=== PATIENT | female | born 1955 | race Hispanic/Latino ===

== ENCOUNTER 2018-01-13 17:52 | Emergency (ER) | payer SELFPAY ==
[~2018-01-13 17:52] MED LIST: LISI-617 PO
[2018-01-13] MEDS ORDERED: ACETAMINOPHEN EXTRA STRENGTH 500 MG TABLET ONE (18:50)
== END 2018-01-13 19:03 | disposition home or self-care (01) ==
LOC: EDH 17:52
DX: S80.02XA Contusion of left knee, initial encounter (principal); I10 Essential (primary) hypertension; Z88.6 Allergy status to analgesic agent; Z98.890 Other specified postprocedural states; W22.8XXA Striking against or struck by other objects, initial encounter; Y93.89 Activity, other specified; Y92.098 Other place in other non-institutional residence as the place of occurrence of the external cause; Y99.8 Other external cause status
CPT/HCPCS: 73562

== ENCOUNTER 2018-07-13 15:46 | Emergency (ER) | payer SELFPAY ==
[2018-07-13] MEDS ORDERED: ACETAMINOPHEN EXTRA STRENGTH 500 MG TABLET ONE (16:15)
[2018-07-13 16:48] LABS: RAPID GROUP A STREP NEGATIVE (NEGATIVE)
[2018-07-13 17:11] LABS: APPEARANCE,URINE Clear (CLEAR); BILIRUBIN,URINE Negative (NEGATIVE); COLOR,URINE Yellow (YELLOW); GLUCOSE, URINE (UA) Negative (NEGATIVE); KETONES,URINE Negative (NEGATIVE); LEUKOCYTE ESTERASE ,URINE Trace (NEGATIVE); NITRATE,URINE Negative (NEGATIVE); OCCULT BLOOD,URINE Large (NEGATIVE); PH,URINE 6.5 (5.0-8.0); PROTEIN,URINE POS 1+ (NEGATIVE)
[2018-07-13 17:23] LABS: BACTERIA,URINE Rare /HPF (None Seen); SQUAMOUS EPITHELIAL CELL,UR Few /HPF (0-2)
[2018-07-13] MEDS ORDERED: CEFTRIAXONE SODIUM 1 GM ONE (17:34)
== END 2018-07-13 17:49 | disposition home or self-care (01) ==
LOC: EDH 15:46
DX: N30.00 Acute cystitis without hematuria (principal); J02.9 Acute pharyngitis, unspecified; I10 Essential (primary) hypertension; Z88.6 Allergy status to analgesic agent; Z98.890 Other specified postprocedural states
CPT/HCPCS: 81001; 87804 ×2; 87880; 96372; 99284; J0696

== ENCOUNTER 2019-08-22 15:57 | Emergency (ER) | payer OTHER ==
[2019-08-22 16:43] LABS: APPEARANCE,URINE Cloudy (CLEAR); BILIRUBIN,URINE Negative (NEGATIVE); COLOR,URINE Yellow (YELLOW); GLUCOSE, URINE (UA) Negative (NEGATIVE); KETONES,URINE Negative (NEGATIVE); LEUKOCYTE ESTERASE ,URINE Trace (NEGATIVE); NITRATE,URINE Negative (NEGATIVE); OCCULT BLOOD,URINE Large (NEGATIVE); PH,URINE 6.5 (5.0-8.0); PROTEIN,URINE POS 1+ mg/dL (NEGATIVE); UROBILINOGEN,URINE 0.2 mg/dL (0.2-1.0)
[2019-08-22 16:46] LABS: RAPID GROUP A STREP NEGATIVE (NEGATIVE)
[2019-08-22 16:57] LABS: BACTERIA,URINE Few /HPF (None Seen); MUCUS,URINE Few LPF (None Seen); SQUAMOUS EPITHELIAL CELL,UR Moderate /HPF (0-2); YEAST,URINE BUDDING Few /HPF (None Seen)
== END 2019-08-22 17:22 | disposition home or self-care (01) ==
LOC: EDH 15:57 → EEVIPCON 15:57 → EDH 17:22
DX: J02.9 Acute pharyngitis, unspecified (principal); I10 Essential (primary) hypertension; Z88.5 Allergy status to narcotic agent; Z88.6 Allergy status to analgesic agent
CPT/HCPCS: 81001; 87804; 87880